=== PATIENT | female | born 1980 | race Caucasian/White ===

== ENCOUNTER 2017-06-11 17:08 | Emergency (ER) | payer OTHER ==
[~2017-06-11] VITALS: Ht 167.6 cm; Wt 79.0 kg
[~2017-06-11 17:08] MED LIST: BACTRIM DS1 TAB PO; CIPROFLOXACN500 MG PO; PYRIDIUM200 MG PO; SPRINTEC 2828 DAY PO; VISTARIL PO
[2017-06-11] MEDS ORDERED: SERTRALINE HCL50 MG PO (18:57)
[2017-06-11 18:58] LABS: INFLUENZA A NONE DETECTED (NONE DETECT); INFLUENZA B NONE DETECTED (NONE DETECT)
[2017-06-11] MEDS ORDERED: CODEINE/GUAIFEN1 SOL PO (20:39)
[2017-06-11 20:45] VITALS: BP 129/74
== END 2017-06-11 20:45 | disposition home or self-care (01) | DRG 153 ==
LOC: ED 17:08
PROVIDERS: Emergency Medicine
DX: J06.9 Acute upper respiratory infection, unspecified (principal); R05 Cough; R50.9 Fever, unspecified; R09.81 Nasal congestion; R09.89 Other specified symptoms and signs involving the circulatory and respiratory systems; R19.7 Diarrhea, unspecified

== ENCOUNTER 2017-12-19 07:02 | Emergency (ER) | payer OTHER ==
[~2017-12-19] VITALS: Ht 167.6 cm; Wt 82.0 kg
[~2017-12-19 07:02] MED LIST changes: +CODEINE/GUAIFEN1 SOL PO; +SERTRALINE HCL50 MG PO
[2017-12-19] MEDS ORDERED: ZOLOFT25 MG PO (07:25)
[2017-12-19 07:35] LABS: URINE COLOR ORANGE
[2017-12-19 07:38] LABS: HEMATOCRIT 39.9 % (37.0-47.0); HEMOGLOBIN 13.3 g/dl (12.0-16.0); IMMATURE GRANULOCYTES 0.3 % (0.0-5.0); MEAN CELL VOLUME 92.4 fL CALC (80.0-100.0); MEAN CORPUSCULAR HGB 30.8 pG CALC (26.0-32.0); MEAN CORPUSCULAR HGB CONC 33.3 g/L CALC (32.0-36.0); NEUT# 4.59 thou/uL (2.00-7.15); RED BLOOD COUNT 4.32 mill/uL (4.20-5.60)
[2017-12-19 07:44] LABS: URINE AMORPH SEDIMENT MANY hpf (NONE-FEW); URINE BACTERIA FEW hpf; URINE EPITHELIAL CELLS MODERATE EPI/hpf (0-FEW); URINE MUCUS FEW hpf (NONE-FEW)
[2017-12-19 07:46] LABS: URINE CLARITY TURBID
[2017-12-19 07:47] LABS: ALBUMIN 4.4 g/dL (3.2-5.0); ALKALINE PHOSPHATASE 93 u/l (38-126); ANION GAP 15 (6-22 (CALC)); BILIRUBIN, TOTAL 0.9 mg/dL (0.0-1.4); BUN 7 mg/dL (7-17); BUN/CREATININE RATIO 13 (12-20 (CALC)); CARBON DIOXIDE 29 mmol/l (22-30); CHLORIDE 103 mmol/l (95-108); CREATININE 0.5 mg/dL (0.5-1.0); GFR > 60 ML/MIN (>=60 (CALC)); GFR FOR AFR.AMER. > 60 ML/MIN (>=60 (CALC)); LIPASE 113 u/l (23-300); POTASSIUM 3.6 mmol/l (3.5-5.1); SGOT/AST 18 u/l (14-36); SGPT/ALT 24 u/l (9-52); SODIUM 143 mmol/l (137-146); TOTAL PROTEIN 7.6 g/dL (6.3-8.2)
[2017-12-19] MEDS ORDERED: ONDANSETRON4 MG PO (08:55)
[2017-12-19] MEDS ORDERED: CEPHALEXIN500 M1 PO (08:55)
[2017-12-19 09:15] VITALS: BP 152/88
== END 2017-12-19 09:16 | disposition home or self-care (01) | DRG 690 ==
LOC: ED 07:02
PROVIDERS: Family Medicine
DX: N39.0 Urinary tract infection, site not specified (principal)
CPT/HCPCS: Q9967